=== PATIENT | male | born 1990 | race Caucasian/White ===

== ENCOUNTER 2018-11-29 07:42 | Emergency (ER) | payer OTHER, BC ==
--- NOTE | 2018-11-29 08:35 | EDM.PDOC ---
ED HPI GENERAL MEDICAL PROBLEM - General Chief Complaint: Lower Extremity Injury/Pain Stated Complaint: SMASHED LT HAND Time Seen by Provider: 11/29/18 08:10 Source of Information: Reports: Patient History Limitations: Reports: No Limitations - History of Present Illness INITIAL COMMENTS - FREE TEXT/NARRATIVE: The patient presents with right hand injury. He was at work taking out a piston and he was inching it out and it popped out and hit his left hand. He is right handed. He has pain to all fingers and his hand and it radiates up his arm. Onset: Sudden Duration: Minutes: Location: Reports: Upper Extremity, Left (hand) Quality: Reports: Sharp Severity: Moderate Improves with: Reports: Immobilization Worsens with: Reports: Movement Context: Reports: Trauma (Hit by a large piston) Associated Symptoms: Reports: No Other Symptoms Left Hand Pain Score (Numeric/FACES): 8 - Related Data Allergies Allergy/AdvReac Type Severity Reaction Status Date / Time No Known Allergies Allergy Verified 11/29/18 07:54 Home Meds: Home Meds Hydrocodone/Acetaminophen [Hydrocodon-Acetaminophen 5-325] 1 - 2 each PO Q6HR PRN #10 tablet 11/29/18 [Rx] Lisinopril [Zestril] 10 mg PO DAILY 11/29/18 [History] Past Medical History - Past Health History Medical/Surgical History: Denies Medical/Surgical History Cardiovascular History: Reports: Hypertension Social & Family History - Tobacco Use Smoking Status *Q: Current Every Day Smoker Years of Tobacco use: 10 Packs/Tins Daily: 0.2 - Caffeine Use Caffeine Use: Reports: Coffee - Recreational Drug Use Recreational Drug Use: No Review of Systems - Review of Systems Review Of Systems: See Below Constitutional: Reports: No Symptoms Eyes: Reports: No Symptoms Ears: Reports: No Symptoms Nose: Reports: No Symptoms Mouth/Throat: Reports: No Symptoms Respiratory: Reports: No Symptoms Cardiovascular: Reports: No Symptoms GI/Abdominal: Reports: No Symptoms Genitourinary: Reports: No Symptoms Musculoskeletal: Reports: Other (Left hand pain) ED EXAM, GENERAL - Physical Exam Exam: See Below Exam Limited By: No Limitations General Appearance: Alert, No Apparent Distress Ears: Normal External Exam Nose: Normal Inspection Head: Atraumatic, Normocephalic Neck: Normal Inspection Respiratory/Chest: No Respiratory Distress Extremities: Other (Pain upon palpation to the entire left hand with only minimal edema. The fourth finger has some blood under the nail on each side) Course - Vital Signs Last Recorded V/S: Last Vital Signs Temp 98.1 F 11/29/18 07:55 Pulse 85 11/29/18 07:55 Resp 12 11/29/18 07:55 BP 120/90 11/29/18 07:55 Pulse Ox 100 11/29/18 07:55 - Orders/Labs/Meds Orders: Active Orders 24 hr Category Date Time Status Hand Comp Min 3V Lt [CR] Stat Exams 11/29/18 08:14 Taken Durable Medical Equipment for Discharge [DME for Oth 11/29/18 08:48 Ordered Discharge] [COMM] Stat - Re-Assessments/Exams Free Text/Narrative Re-Assessment/Exam: 11/29/18 08:35 I ordered an x-ray of his hand. 11/29/18 08:50 His hand looks good but he has a distal tuft fracture of his 4th finger. I will have my nurse put on an aluminum splint and I will give him something for pain. Departure - Departure Time of Disposition: 08:55 Disposition: Home, Self-Care 01 Condition: Good Clinical Impression: Crush injury of hand Qualifiers: Encounter type: initial encounter Laterality: left Qualified Code(s): S67.22XA - Crushing injury of left hand, initial encounter Finger fracture, left Qualifiers: Encounter type: initial encounter Finger: ring finger Fracture type: closed Phalanx: distal Fracture alignment: nondisplaced Qualified Code(s): S62.665A - Nondisplaced fracture of distal phalanx of left ring finger, initial encounter for closed fracture - Discharge Information *PRESCRIPTION DRUG MONITORING PROGRAM REVIEWED*: No *COPY OF PRESCRIPTION DRUG MONITORING REPORT IN PATIENT MATTHEW: No Prescriptions: Hydrocodone/Acetaminophen [Hydrocodon-Acetaminophen 5-325] 1 - 2 each PO Q6HR PRN #10 tablet PRN Reason: Pain Referrals: Carloz Resendez PA [Primary Care Provider] - 1 Week Forms: ED Department Discharge, ED Return to Work/School Form Additional Instructions: Ice your finger for 15 minutes 3 times per day for 2 days. Elevate your finger above your heart as much as you can for 2 days. Take motrin or tylenol for pain. If that does not help, try some hydrocodone. Do not drive, work or operate heavy machinery while taking the hydrocodone. Please return if you are worse. - My Orders Last 24 Hours: My Active Orders 11/29/18 08:14 Hand Comp Min 3V Lt [CR] Stat 11/29/18 08:48 Durable Medical Equipment for Discharge [DME for Discharge] [COMM] Stat - Assessment/Plan Last 24 Hours: My Active Orders 11/29/18 08:14 Hand Comp Min 3V Lt [CR] Stat 11/29/18 08:48 Durable Medical Equipment for Discharge [DME for Discharge] [COMM] Stat
--- NOTE | 2018-11-29 08:52 | CR ---
Left hand: Three views of the left hand were obtained. Comparison: No prior hand exam. Slightly comminuted tuft fracture is identified within the distal fourth finger. Mild displacement is seen of the fracture fragments. Soft tissue swelling is also seen within the distal fourth finger. No additional fracture or other bony abnormality is identified. Impression: 1. Tuft fracture as described above. Diagnostic code #3
== END 2018-11-29 09:10 | disposition home or self-care (01) ==
LOC: JD.ED 07:42
DX: S67.22XA Crushing injury of left hand, initial encounter (principal); S62.665A Nondisplaced fracture of distal phalanx of left ring finger, initial encounter for closed fracture; F17.210 Nicotine dependence, cigarettes, uncomplicated; I10 Essential (primary) hypertension; Z79.899 Other long term (current) drug therapy; W22.8XXA Striking against or struck by other objects, initial encounter; Y99.0 Civilian activity done for income or pay
CPT/HCPCS: 73130-26-LT; 73130-LT; 99283